=== PATIENT | male | born 1945 | race Caucasian/White ===

== ENCOUNTER 2016-12-17 06:00 | Inpatient (IN) ==
[2016-12-17] MEDS ORDERED: MAGNESIUM SULF RIDER 2 GM in PREMIX 1 EACH IV PRN (10:15)
[2016-12-17] MEDS ORDERED: DOCUSATE SODIUM 100 MG CAPSULE PO PRN (10:15)
[2016-12-17] MEDS ORDERED: ACETAMINOPHEN 325 MG TABLET PO PRN (10:15)
[2016-12-17] MEDS ORDERED: ONDANSETRON 4 MG/2 ML VIAL IV PRN (10:15)
[2016-12-17] MEDS ORDERED: POTASSIUM CHLORIDE 20 MEQ TABLET PO PRN (10:15)
[2016-12-17] MEDS ORDERED: ZALEPLON 5 MG CAPSULE PO PRN (10:15)
[2016-12-17] MEDS ORDERED: MAGNESIUM SULF RIDER 4 GM in PREMIX 1 EACH IV PRN (10:15)
[2016-12-17] MEDS ORDERED: ENOXAPARIN 40 MG/0.4 ML SYRINGE SUBCUT SCH (10:30)
--- NOTE | 2016-12-17 10:33 | EKG Report ---
Stationary ECG Study [facility] Test Date: 12/17/2016 10:33:57 AM Pat Name: NATHANAEL CAMARA Department: Room: 267 Gender: M Regional Liaison: ARMANDO : 1945 Requested by: Lesly Borjas Order Number: [id number] Reading MD: ZEINAB MURILLO Intervals [place] Rate: 89 P: 999 [place]: 0 QRS: -84 QRSD: 111 T: 7 QT: 409 QTc: 456 Interpretive Statements SUPRAVENTRICULAR RHYTHM at 89 bpm INCOMPLETE RIGHT BUNDLE BRANCH BLOCK LEFT ANTERIOR FASCICULAR BLOCK POSSIBLE ANTERIOR MYOCARDIAL INFARCTION, PROBABLY OLD Electronically Signed On 12-20-16 16:40:48 CDT by ZEINAB MURILLO [email or web address]
[2016-12-17 10:38] LABS: Basophils % 0.3 % (0.0-0.8); Eosinophils # 0.2 10*3/uL (0.0-0.87); Eosinophils % 6.8 % (0.00-10.9); Hematocrit 37.8 VOL% (42.0-52.0); Hemoglobin 11.9 GM/DL (14.0-18.0); Immature Granulocytes % 0.3 %; Immature Granulocytes Absolute 0.01 #; Lymphocytes % 30.7 % (21.2-54.2); Mean Corpuscular HGB Conc 31.5 GM/DL (32-36); Mean Corpuscular Hemoglobin 28 PG (27-34); Mean Corpuscular Volume 87.3 FL (87-102); Mean Platelet Volume 9.1 FL (9.6-12.0); Monocytes # 0.4 10*3/uL (0.11-0.8); Monocytes % 12.8 % (1.7-12.7); Neutrophils # 1.7 10*3/uL (1.4-7.4); Neutrophils % 49.1 % (38.7-73.9); Platelet Count 168 T/CUMM (130-400); Red Blood Count 4.33 MC/CUMM (3.8-5.5); Red Cell Distribution Width 17.2 % (9.3-17.3); White Blood Count 3.4 T/CUMM (4-12)
[2016-12-17 10:47] LABS: INR 2.7
[2016-12-17 10:54] LABS: PT Patient Result 30.5 SECS
[2016-12-17] MEDS: SOTALOL 80 MG TABLET PO SCH ×2 (11:02→21:10)
[2016-12-17] MEDS: ASCORBIC ACID 500 MG TABLET PO SCH ×2 (11:02→21:10)
[2016-12-17 11:19] LABS: Albumin 3.6 G/DL (3.4-5.0); Bilirubin,Total 0.7 MG/DL (0.2-1.0); Calcium 9.4 MG/DL (8.5-10.1); Osmolality,Calculated 275.8 MOS/KG (273-304); Potassium 4.1 MMOL/L (3.5-5.1); Total Protein 7.3 G/DL (6.4-8.3)
--- NOTE | 2016-12-17 11:44 | Cardiology History & Physical ---
Assessment and Plan - Time spent with patient Time spent with patient: Greater than 30 minutes (1) Paroxysmal atrial fibrillation Status: Chronic Assessment and plan: See plan of care listed below. Current Visit: Yes (2) CHF (congestive heart failure) Status: Chronic Assessment and plan: See plan of care listed below. Current Visit: No Qualifiers: Congestive heart failure type: systolic Congestive heart failure chronicity : chronic Qualified Code(s): I50.22 - Chronic systolic (congestive) heart failure (3) Atrial flutter Status: Chronic Assessment and plan: See plan of care listed below. Current Visit: No (4) H/O mitral valve replacement Status: Chronic Assessment and plan: See plan of care listed below. Current Visit: No (5) High risk medication use Status: Chronic Assessment and plan: See plan of care listed below. Current Visit: Yes (6) Hypertension Status: Chronic Assessment and plan: See plan of care listed below. Current Visit: No (7) Chronic anticoagulation Status: Chronic Assessment and plan: See plan of care listed below. Current Visit: Yes (8) Hypothyroid Status: Chronic Assessment and plan: See plan of care listed below. 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 Bedoya is a 71 year old male without known history of CAD, routinely followed by Dr. Mcgraw. Cardiac risk factors significant for: Hypertension, dyslipidemia, advanced age, family history of CAD (mother) and former smoker ( quit in 1992). Past medical history includes: Paroxysmal atrial flutter/ fibrillation (status post atrial ablation 1-1/2 months ago [facility]), chronic systolic congestive heart failure, hypothyroidism, chronic peripheral edema, chronic anticoagulation and nonrheumatic mitral valve regurgitation (status post MVR with bioprosthetic valve in [facility] Unfortunately, patient did not remain in sinus rhythm post atrial ablation. During his visit with Dr. Mcgraw last week, they discussed several different options in managing his arrhythmia including the possibility of increasing his labetalol and repeating cardioversion and repeat ablation. The patient opted for a more conservative medical route first. Therefore, patient was arranged for direct admit this morning for sotalol load. Of note, per Dr. Mcgraw is clinic note he has had significant side effects from amiodarone in the past and is unable to take this medication. Patient was a direct admit to [facility] today for sotalol load. He was seen by Dr. Mcgraw in the cardiology clinic December 11, 2016. Patient underwent atrial ablation a month and a half ago. He was feeling much better after ablation until he experienced recurrent atrial fibrillation with rapid ventricular response about 2 weeks ago. This continued for several days. He confirms shortness of breath, palpitations/heart racing and fatigue. Denies anginal symptoms. No syncope, lightheadedness, diaphoresis , nausea, vomiting or orthopnea. He got into see Dr. Mcgraw last week and was then instructed to present to [facility] for direct admit at this morning to increase his sotalol dosage. Patient was seen and examined on the telemetry unit today. He is doing well. He is in normal sinus rhythm. Electrolytes within acceptable range. Normal T4. I have increased patient's atenolol dosage today. We will monitor QTC with daily EKG. I will further discuss with Dr. Ayala and await his additional recommendations. IMPRESSION AND PLAN 1. PAROXYSMAL ATRIAL FIBRILLATION/FLUTTER - Status post atrial ablation a month and a half ago at [facility]. Now with recurrent symptomatic paroxysmal atrial fibrillation/flutter. Admitted for increase in sotalol dose. Patient is currently in normal sinus rhythm. Heart rates in the 80s. Multiple PVCs noted on pvc monitor. I have increased his sotalol to 160 mg twice daily. Monitor QT interval daily with EKG. Daily BMP, optimize electrolytes. 2. HYPERTENSION - Blood pressure well controlled. Will monitor blood pressure and adjust medications accordingly. 3. DYSLIPIDEMIA - Lipid panel in the morning. 4. STATUS POST MVR, BIOPROSTHETIC VALVE - Stable, continue current plan of care. 5. CHRONIC ANTICOAGULATION - INR therapeutic 2.7. Continue Coumadin. Daily INR. 6. CHRONIC PERIPHERAL EDEMA - Will order venous ultrasound. 7. HYPOTHYROIDISM - Check TSH. Continue thyroid replacement. 8. CHRONIC CONGESTIVE HEART FAILURE, SYSTOLIC DYSFUNCTION - Most recent ejection fraction around 40%. BNP 989. Chest x-ray reviewed. Lasix increased to IV. Low-dose DAVID inhibitor initiated. Continue spironolactone and beta- anne-marie. Daily BMP. Home Medications Medication Instructions Recorded Confirmed Type Ascorbic Acid [Vitamin C] 1,000 mg PO BID 07/09/16 12/17/16 History Aspirin 81 mg PO DAILY 07/09/16 12/17/16 History Finasteride 5 mg PO DAILY 07/09/16 12/17/16 History Furosemide Tab [Lasix Tab] 40 mg PO BID 07/09/16 12/17/16 History Potassium Chloride 10 meq PO BID 07/09/16 12/17/16 History Spironolactone [Aldactone] 25 mg PO BID 07/09/16 12/17/16 History Temazepam [Restoril] 15 mg PO BEDTIME PRN 07/09/16 12/17/16 History Warfarin [Coumadin] 5 mg PO SUTUWEFRSA 07/09/16 12/17/16 History Thyroid,Pork [[place] Thyroid] 90 mg PO DAILY 07/10/16 12/17/16 History Sotalol [Betapace] 120 mg PO BID #60 tablet 07/27/16 12/17/16 Rx Magnesium Chloride [Mag Delay] 70 mg PO BID 12/17/16 12/17/16 History Warfarin Sodium [Warfarin Sodium] 2.5 mg PO MOTH 12/17/16 12/17/16 History Allergies Allergy/AdvReac Type Severity Reaction Status Date / Time esomeprazole [From Nexium] AdvReac Abdominal Verified 07/25/16 07:44 Pain - Constitutional Constitutional: Present: as per HPI, fatigue, weakness. Absent: chills, fever(s ), frequent falls, headache(s), lethargy, weight gain, weight loss - Cardiovascular Cardiovascular: Present: as per HPI, dyspnea, edema, palpitations. Absent: chest pain at rest, chest pain with activity, radiating jaw, neck or arm pain, lightheadedness, orthopnea, PND - Respiratory Respiratory: Present: as per HPI, dyspnea. Absent: cough, wheezing, pain on inspiration - Gastrointestinal Gastrointestinal: Present: as per HPI. Absent: coffee ground emesis, hematemesis, hematochezia, melena, nausea, vomiting - Neurological Neurological: Present: as per HPI. Absent: abnormal gait, abnormal speech, behavioral changes, dizziness, syncope Medical,Surgical,& Family Hx - Medical History Cardio: History of: Cardiac Dysrhythmia (Afib), Hypertension, Cardiovascular Problems (Cardioversion) Neurology: No history of: Seizures Endocrine: History of: Thyroid Disorder (HYPOTHYROIDISM) Musculoskeletal: History of: Back/Neck Problems - Surgical History Cardiac Surgeries: Sugical HX of: Cardiac Catheterization, Cardiac Surgery ( "heart surgery 05/2016 [place]") - Family History Family History: Reports;: Family Cancer (FATHER-PROSTATE), Family Diabetes ( FATHER), Family Heart Disease (FATHER) - Social History Smoking Status: Former smoker Frequency of Alcohol Use: None Type of Drug Use: None Cardiology Physical Exam - Constitutional Vitals: Vital Signs Temp Pulse Resp BP Pulse Ox 97.6 F 90 20 133/80 98 12/17/16 10:27 12/17/16 10:27 12/17/16 11:00 12/17/16 10:27 12/17/16 10:27 Intake and Output 12/16/16 12/17/16 12/17/16 22:59 06:59 14:59 Other: Weight 186 lb Patient Weight 12/18/16 06:59 Weight 186 lb Exam: General: Appears well with no apparent distress. Pleasant and cooperative. Appears comfortable. HEENT: PERRL, normocephalic, atraumatic. Mucous membranes moist. No jaundice noted. Conjunctiva moist and clear, sclerae anicteric Neck: No JVD/HJR, no thyromegaly or lymphadenopathy noted. No carotid bruit appreciated Cardiac: Regular rate and rhythm. Systolic murmur Lungs: Clear to auscultation without accessory muscle use to assist the respiratory pattern. Not requiring oxygen. Abdomen: Soft, bowel sounds normoactive. Nontender and nondistended. No abdominal bruit or thrill noted. No masses noted. Extremities: No clubbing, cyanosis noted. 1-2+ lower extremity edema. Upper extremity pulses 2+. Lower extremity pulses 2+. Capillary refill less than 3 seconds. Skin: No unusual lesions or rashes. No skin breakdown appreciated. Neuro: Awake, alert and oriented 3. Moves all extremities well without hemiparesis or paralysis. No essential tremor is appreciated. Result/EKG - Labs CBC & BMP: 12/17/16 10:31 12/17/16 10:31 Lab Results: I have reviewed the past 24 hour labs Labs: Laboratory Results - last 24 hr 12/17/16 12/17/16 12/17/16 10:31 10:31 10:31 WBC 3.4 L RBC 4.33 Hgb 11.9 L Hct 37.8 L MCV 87.3 MCH 28 MCHC 31.5 L RDW 17.2 Plt Count 168 MPV 9.1 L Neut % (Auto) 49.1 Lymph % (Auto) 30.7 [place] % (Auto) 12.8 H Eos % (Auto) 6.8 Baso % (Auto) 0.3 Neut # (Auto) 1.7 Lymph # (Auto) 1.0 L [place] # (Auto) 0.4 Eos # (Auto) 0.2 Baso # (Auto) 0.0 Immature Gran % 0.3 Nucleated RBC % 0.0 Immature Gran # 0.01 Nucleated RBCs # 0.00 Immature Plt Fraction 0.0 INR PT Patient/Control Mix Sodium 137 Potassium 4.1 Chloride 104 Carbon Dioxide 30 Anion Gap 7.1 BUN 22 H Creatinine 0.70 GFR Calculation 117 BUN/Creatinine Ratio 31.00 H Glucose 94 Calculated Osmolality 275.8 Calcium 9.4 Total Bilirubin 0.70 AST 33 ALT 28 Alkaline Phosphatase 191 H B-Natriuretic Peptide Total Protein 7.3 Albumin 3.6 Globulin 3.7 H Albumin/Globulin Ratio 0.9 L Free T4 0.88 12/17/16 12/17/16 10:31 10:31 WBC RBC Hgb Hct MCV MCH MCHC RDW Plt Count MPV Neut % (Auto) Lymph % (Auto) [place] % (Auto) Eos % (Auto) Baso % (Auto) Neut # (Auto) Lymph # (Auto) [place] # (Auto) Eos # (Auto) Baso # (Auto) Immature Gran % Nucleated RBC % Immature Gran # Nucleated RBCs # Immature Plt Fraction INR 2.7 PT Patient/Control Mix 30.5 Sodium Potassium Chloride Carbon Dioxide Anion Gap BUN Creatinine GFR Calculation BUN/Creatinine Ratio Glucose Calculated Osmolality Calcium Total Bilirubin AST ALT Alkaline Phosphatase B-Natriuretic Peptide 989 H Total Protein Albumin Globulin Albumin/Globulin Ratio Free T4
--- NOTE | 2016-12-17 13:37 | XRay Report ---
Portable chest. Indication: Shortness of breath. Comparison: July 16, 2016. The cardiac silhouette is enlarged. A prosthetic valve is visible. Post median sternotomy. The left lung is essentially clear. There is abnormal opacity at the right lung base consistent with a moderate pleural effusion plus underlying atelectasis or infiltrate. Degenerative changes are present within the spinal column and both shoulders. Impression: Cardiomegaly. Right basilar opacity, atelectasis plus or minus infiltrate, plus pleural effusion. PROCEDURE INTERPRETED AT [facility] DEPARTMENT OF RADIOLOGY Final Report Signed by: Dr. Lesly Tovar
[2016-12-17] MEDS ORDERED: TEMAZEPAM 15 MG CAPSULE PO PRN (13:39)
[2016-12-17] MEDS ORDERED: FUROSEMIDE 40 MG TABLET PO SCH (16:00)
--- NOTE | 2016-12-17 16:37 | Ultrasound Report ---
Bilateral lower extremity venous Doppler with newton scale, Spectral Doppler and color-flow analysis performed and interpreted. Indication: Edema Scanning over both common femoral veins, superficial femoral veins, greater saphenous veins and popliteal veins demonstrates normal compressibility, color flow, and augmentation. Impression: No evidence of DVT seen in either lower extremity. The Ultrasound images were captured and stored. PROCEDURE INTERPRETED AT [facility] DEPARTMENT OF RADIOLOGY Final Report Signed by: Dr. Lesly Tovar
[2016-12-17] MEDS: LISINOPRIL 2.5 MG TABLET PO SCH (17:29)
[2016-12-17] MEDS: FUROSEMIDE 40 MG/4 ML VIAL IV SCH (17:29)
[2016-12-17] MEDS ORDERED: WARFARIN 2.5 MG TABLET PO SCH (18:00)
[2016-12-17] MEDS ORDERED: WARFARIN 5 MG TABLET PO SCH (18:00)
[2016-12-17] MEDS: MAGNESIUM CHLORIDE 64 MG TABLET PO SCH (21:10)
[2016-12-17] MEDS: FAMOTIDINE 20 MG TABLET PO SCH (21:10)
[2016-12-17] MEDS: POTASSIUM CHLORIDE 10 MEQ TABLET PO SCH (21:10)
[2016-12-17] MEDS: SPIRONOLACTONE 25 MG TABLET PO SCH (21:18)
[2016-12-18 05:23] LABS: Basophils % 0.3 % (0.0-0.8); Eosinophils # 0.2 10*3/uL (0.0-0.87); Hematocrit 37.3 VOL% (42.0-52.0); Hemoglobin 11.9 GM/DL (14.0-18.0); Immature Granulocytes % 0.3 %; Immature Granulocytes Absolute 0.01 #; Lymphocytes # 1.2 10*3/uL (1.4-4.0); Lymphocytes % 31.7 % (21.2-54.2); Mean Corpuscular HGB Conc 31.9 GM/DL (32-36); Mean Corpuscular Hemoglobin 28 PG (27-34); Mean Corpuscular Volume 86.1 FL (87-102); Mean Platelet Volume 9.7 FL (9.6-12.0); Monocytes # 0.5 10*3/uL (0.11-0.8); Monocytes % 11.9 % (1.7-12.7); Neutrophils # 1.9 10*3/uL (1.4-7.4); Neutrophils % 50.8 % (38.7-73.9); Platelet Count 171 T/CUMM (130-400); Red Blood Count 4.33 MC/CUMM (3.8-5.5); Red Cell Distribution Width 17.1 % (9.3-17.3); White Blood Count 3.8 T/CUMM (4-12)
[2016-12-18 05:37] LABS: INR 2.5
[2016-12-18 05:38] LABS: PT Patient Result 28.1 SECS
[2016-12-18 06:08] LABS: Calcium 9.4 MG/DL (8.5-10.1); Osmolality,Calculated 275.7 MOS/KG (273-304); Potassium 3.8 MMOL/L (3.5-5.1); Risk Ratio 3.8; Thyroid Stimulating Hormone 4.54 uIU/ml (0.358-3.74); VLDL CHOLESTEROL 16.8 MG/DL
--- NOTE | 2016-12-18 07:26 | EKG Report ---
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
[2016-12-18] MEDS: THYROID 60 MG TABLET PO SCH (08:58)
[2016-12-18] MEDS: MAGNESIUM CHLORIDE 64 MG TABLET PO SCH ×2 (08:59→20:56)
[2016-12-18] MEDS: LISINOPRIL 2.5 MG TABLET PO SCH (09:00)
[2016-12-18] MEDS: FINASTERIDE 5 MG TABLET PO SCH (09:00)
[2016-12-18] MEDS: SOTALOL 80 MG TABLET PO SCH ×2 (09:00→20:57)
[2016-12-18] MEDS: POTASSIUM CHLORIDE 10 MEQ TABLET PO SCH ×2 (09:01→20:57)
[2016-12-18] MEDS: FUROSEMIDE 40 MG/4 ML VIAL IV SCH (09:01)
[2016-12-18] MEDS: ASPIRIN CHEW 81 MG TABLET PO SCH (09:01)
[2016-12-18] MEDS: SPIRONOLACTONE 25 MG TABLET PO SCH ×2 (09:01→20:59)
[2016-12-18] MEDS: ASCORBIC ACID 500 MG TABLET PO SCH ×2 (09:01→20:56)
--- NOTE | 2016-12-18 11:42 | Cardiology Progress Note ---
Assessment and Plan (1) Paroxysmal atrial fibrillation Status: Chronic Assessment and plan: See plan of care listed below. Current Visit: Yes (2) CHF (congestive heart failure) Status: Chronic Assessment and plan: See plan of care listed below. Current Visit: No Qualifiers: Congestive heart failure type: systolic Congestive heart failure chronicity : chronic Qualified Code(s): I50.22 - Chronic systolic (congestive) heart failure (3) Atrial flutter Status: Chronic Assessment and plan: See plan of care listed below. Current Visit: No (4) H/O mitral valve replacement Status: Chronic Assessment and plan: See plan of care listed below. Current Visit: No (5) High risk medication use Status: Chronic Assessment and plan: See plan of care listed below. Current Visit: Yes (6) Hypertension Status: Chronic Assessment and plan: See plan of care listed below. Current Visit: No (7) Chronic anticoagulation Status: Chronic Assessment and plan: See plan of care listed below. Current Visit: Yes (8) Hypothyroid Status: Chronic Assessment and plan: See plan of care listed below. 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 Bedoya is a 71 year old male without known history of CAD, routinely followed by Dr. Mcgraw. Cardiac risk factors significant for: Hypertension, dyslipidemia, advanced age, family history of CAD (mother) and former smoker ( quit in 1992). Past medical history includes: Paroxysmal atrial flutter/ fibrillation (status post atrial ablation 1-1/2 months ago [facility]), chronic systolic congestive heart failure, hypothyroidism, chronic peripheral edema, chronic anticoagulation and nonrheumatic mitral valve regurgitation (status post MVR with bioprosthetic valve in [facility]). Unfortunately, patient did not remain in sinus rhythm post atrial ablation. She had recurrent A. fib RVR approximately 2 weeks ago. After seeing Dr. Mcgraw last week in the cardiology clinic they decided to increase his sotalol dose from 120 to 160 mg twice daily. He was directly admitted to the telemetry unit yesterday for close observation while his sotalol is increased. 2016 Patient was seen and examined on the telemetry unit. He is doing well without complaints. Denies heart racing/palpitations. Denies chest pain, heaviness or tightness. Family at bedside. Questions answered. He has tolerated increase in sotalol well. He has received 2 doses thus far. EKG reviewed this morning QT interval 445. We will continue to monitor QT interval with daily EKGs. Lipid panel reviewed. LDL stable at 89. Patient does not have a history of CAD nor is he a diabetic. No need for lipid-lowering agent at this time. Patient has maintained normal sinus rhythm this hospitalization. Hemodynamically stable. He diuresed well yesterday with Lasix. Clinically, he is without shortness of breath and orthopnea. I have decreased his Lasix today to p.o. BNP in the morning. INR this morning is therapeutic at 2.5. Continue current Coumadin dosage. Daily INR. Continue sotalol, low-dose DAVID inhibitor, Aldactone and beta-blockade. Will monitor daily BMP. I will further discuss with Dr. Ayala and await his additional recommendations. IMPRESSION AND PLAN 1. PAROXYSMAL ATRIAL FIBRILLATION/FLUTTER - Status post atrial ablation a month and a half ago at [facility]. Now with recurrent symptomatic paroxysmal atrial fibrillation/flutter. Admitted for increase in sotalol dose. Patient has maintained normal sinus rhythm this hospitalization. Tolerating sotalol 160 mg twice daily well. EKG this morning revealed QT interval 445. Daily EKG. 2. HYPERTENSION - Blood pressure well controlled. Will monitor blood pressure and adjust medications accordingly. 3. STATUS POST MVR, BIOPROSTHETIC VALVE - Stable, continue current plan of care. 4. CHRONIC ANTICOAGULATION - INR therapeutic 2.5. Continue Coumadin. Daily INR. 5. CHRONIC PERIPHERAL EDEMA - Venous ultrasound negative for DVT. Continue diuretics. 6. HYPOTHYROIDISM -thyroid studies normal. Continue thyroid replacement. 7. CHRONIC CONGESTIVE HEART FAILURE, SYSTOLIC DYSFUNCTION - Most recent ejection fraction around 40%. Chest x-ray yesterday revealed right pleural effusion. He received IV Lasix yesterday and diuresed well. Clinically, he is without shortness of breath and orthopnea. I have decreased patient's Lasix back to p.o. dosing. Will order BNP in the morning. Continue DAVID inhibitor, Aldactone and beta blockade. Daily weights and strict I's and O's. Exam (Progress Note) - Constitutional Vitals: Period Temp Pulse Resp BP Sys/Pinto Pulse Ox Last 24 Hr 97.1 F-98.2 F 88-93 16-20 128-144/79-90 95-98 Exam: General: Appears well with no apparent distress. Pleasant and cooperative. Appears comfortable. HEENT: PERRL, normocephalic, atraumatic. Mucous membranes moist. No jaundice noted. Conjunctiva moist and clear, sclerae anicteric Neck: No JVD/HJR, no thyromegaly or lymphadenopathy noted. No carotid bruit appreciated Cardiac: Regular rate and rhythm. Systolic murmur Lungs: Clear to auscultation without accessory muscle use to assist the respiratory pattern. Not requiring oxygen. Abdomen: Soft, bowel sounds normoactive. Nontender and nondistended. No abdominal bruit or thrill noted. No masses noted. Extremities: No clubbing, cyanosis noted. 1-2+ lower extremity edema. Upper extremity pulses 2+. Lower extremity pulses 2+. Capillary refill less than 3 seconds. Skin: No unusual lesions or rashes. No skin breakdown appreciated. Neuro: Awake, alert and oriented 3. Moves all extremities well without hemiparesis or paralysis. No essential tremor is appreciated. Result/EKG - Labs CBC & BMP: 12/18/16 04:45 12/18/16 04:45 Lab Results: I have reviewed the past 24 hour labs Labs: Laboratory Results - last 24 hr 12/17/16 12/18/16 12/18/16 10:31 04:45 04:45 WBC 3.8 L RBC 4.33 Hgb 11.9 L Hct 37.3 L MCV 86.1 L MCH 28 MCHC 31.9 L RDW 17.1 Plt Count 171 MPV 9.7 Neut % (Auto) 50.8 Lymph % (Auto) 31.7 [place] % (Auto) 11.9 Eos % (Auto) 5.0 Baso % (Auto) 0.3 Neut # (Auto) 1.9 Lymph # (Auto) 1.2 L [place] # (Auto) 0.5 Eos # (Auto) 0.2 Baso # (Auto) 0.0 Immature Gran % 0.3 Nucleated RBC % 0.0 Immature Gran # 0.01 Nucleated RBCs # 0.00 Immature Plt Fraction 0.0 INR PT Patient/Control Mix Sodium 138 Potassium 3.8 Chloride 103 Carbon Dioxide 29 Anion Gap 9.8 BUN 19 H Creatinine 0.70 GFR Calculation 115 BUN/Creatinine Ratio 27.00 H Glucose 84 Calculated Osmolality 275.7 Calcium 9.4 Triglycerides 84 Cholesterol 133 LDL Cholesterol 89.0 VLDL Cholesterol 16.8 HDL Cholesterol 35 L Heart Disease Risk Ratio 3.80 Free T4 0.88 TSH 3rd Generation 4.540 H 12/18/16 04:45 WBC RBC Hgb Hct MCV MCH MCHC RDW Plt Count MPV Neut % (Auto) Lymph % (Auto) [place] % (Auto) Eos % (Auto) Baso % (Auto) Neut # (Auto) Lymph # (Auto) [place] # (Auto) Eos # (Auto) Baso # (Auto) Immature Gran % Nucleated RBC % Immature Gran # Nucleated RBCs # Immature Plt Fraction INR 2.5 PT Patient/Control Mix 28.1 Sodium Potassium Chloride Carbon Dioxide Anion Gap BUN Creatinine GFR Calculation BUN/Creatinine Ratio Glucose Calculated Osmolality Calcium Triglycerides Cholesterol LDL Cholesterol VLDL Cholesterol HDL Cholesterol Heart Disease Risk Ratio Free T4 TSH 3rd Generation
[2016-12-18] MEDS: WARFARIN 5 MG TABLET PO SCH (17:18)
[2016-12-18] MEDS: FUROSEMIDE 40 MG TABLET PO SCH (17:19)
[2016-12-18] MEDS: FAMOTIDINE 20 MG TABLET PO SCH (20:57)
[2016-12-19 05:00] LABS: Basophils % 0.2 % (0.0-0.8); Eosinophils # 0.2 10*3/uL (0.0-0.87); Hematocrit 38.3 VOL% (42.0-52.0); Hemoglobin 12.5 GM/DL (14.0-18.0); Immature Granulocytes % 0.2 %; Immature Granulocytes Absolute 0.01 #; Lymphocytes # 1.4 10*3/uL (1.4-4.0); Lymphocytes % 32.7 % (21.2-54.2); Mean Corpuscular HGB Conc 32.6 GM/DL (32-36); Mean Corpuscular Hemoglobin 28 PG (27-34); Mean Corpuscular Volume 85.1 FL (87-102); Mean Platelet Volume 9.6 FL (9.6-12.0); Monocytes # 0.5 10*3/uL (0.11-0.8); Monocytes % 11.4 % (1.7-12.7); Neutrophils # 2.2 10*3/uL (1.4-7.4); Neutrophils % 51.5 % (38.7-73.9); Platelet Count 185 T/CUMM (130-400); White Blood Count 4.3 T/CUMM (4-12)
[2016-12-19 05:30] LABS: Calcium 9.7 MG/DL (8.5-10.1); Magnesium 2.1 MG/DL (1.8-2.4); Osmolality,Calculated 277.8 MOS/KG (273-304)
[2016-12-19 05:38] LABS: INR 2.6
[2016-12-19 05:39] LABS: PT Patient Result 27.1 SECS
--- NOTE | 2016-12-19 07:30 | EKG Report ---
Please refer to the EKG image. Final interpretation is pending.
--- NOTE | 2016-12-19 09:46 | Event Note ---
I discussed with Dr. Mcgraw and Dr. Ga, who agreed that he has atrial flutter underlying. He is doing fairly well clinically, but I suspect he will do better if we cardioverted him now to reduce his chance of RVR in the near future. His flutter is a bit atypical but can be seen in the V1 lead. He is anticoagulated for over 3 weeks, and will schedule cardioversion later today, with discharge probably this p.m.
[2016-12-19] MEDS ORDERED: PROPOFOL 200 MG/20 ML VIAL IV ONE (11:50)
[2016-12-19] MEDS ORDERED: ETOMIDATE 20 MG/10 ML VIAL IV ONE (11:50)
--- NOTE | 2016-12-19 12:06 | Cardiology Operative Report ---
Date of Procedure:: 12/19/16 Post-op diagnosis: same Procedure: Procedure: DC cardioversion Indication: Persistent atrial flutter Anesthesia: Propofol administered to the anesthesia service. Description: After the patient was sedated (reach general anesthesia stay as he was unresponsive for some time), 1 shock was administered at 250 J followed by 3 -4 second pause and then sinus bradycardia with subtle at a rate of about 50 bpm with QTC of 490. I explained the results to his family. He will likely need a lower dose of Betapace. Anesthesia: other (Intended conscious sedation with the patient reached the level of general anesthesia temporarily on propofol) Surgeon / Physician: Orlin Ayala Chief I Dispatcher: other Estimated blood loss: minimal Specimens: none sent Condition: stable Disposition: floor
--- NOTE | 2016-12-19 12:18 | Anesthesia Post-Op ---
Anesthesia Post OP - Post Ansesthetic Evaluation Patient seen in post op: Yes Resp: within normal limits CV: within normal limits Mental: within normal limits Temp: within normal limits [id number]: within normal limits Nausea and Vomiting: within normal limits Pain: within normal limits
--- NOTE | 2016-12-19 13:08 | EKG Report ---
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
[2016-12-19] MEDS: LISINOPRIL 2.5 MG TABLET PO SCH (14:16)
[2016-12-19] MEDS: MAGNESIUM CHLORIDE 64 MG TABLET PO SCH ×2 (14:41→20:08)
[2016-12-19] MEDS: THYROID 60 MG TABLET PO SCH (14:42)
[2016-12-19] MEDS: ASCORBIC ACID 500 MG TABLET PO SCH ×2 (14:44→20:07)
[2016-12-19] MEDS: FUROSEMIDE 40 MG TABLET PO SCH ×2 (14:45→17:31)
[2016-12-19] MEDS: FINASTERIDE 5 MG TABLET PO SCH (14:45)
[2016-12-19] MEDS: POTASSIUM CHLORIDE 10 MEQ TABLET PO SCH ×2 (14:45→20:08)
[2016-12-19] MEDS: ASPIRIN CHEW 81 MG TABLET PO SCH (14:45)
[2016-12-19] MEDS: SPIRONOLACTONE 25 MG TABLET PO SCH ×2 (14:45→20:08)
[2016-12-19] MEDS: WARFARIN 5 MG TABLET PO SCH (17:31)
[2016-12-19] MEDS: FAMOTIDINE 20 MG TABLET PO SCH (20:07)
[2016-12-20] MEDS ORDERED: DILTIAZEM INJ 100 MG in SODIUM CHLORIDE 0.9% 100 ML IV SCH (03:00)
[2016-12-20] MEDS ORDERED: SODIUM CHLORIDE 0.9% 0 ML IV ONE (03:02)
[2016-12-20] MEDS ORDERED: DILTIAZEM 100 MG VIAL.ADD IV ONE (03:02)
[2016-12-20] MEDS ORDERED: SODIUM CHLORIDE 0.9% 100 ML IV ONE (03:03)
[2016-12-20 05:56] LABS: Basophils % 0.2 % (0.0-0.8); Eosinophils # 0.2 10*3/uL (0.0-0.87); Eosinophils % 4.5 % (0.00-10.9); Hematocrit 41.7 VOL% (42.0-52.0); Hemoglobin 13.4 GM/DL (14.0-18.0); Immature Granulocytes % 0.2 %; Immature Granulocytes Absolute 0.01 #; Lymphocytes # 1.3 10*3/uL (1.4-4.0); Lymphocytes % 27.9 % (21.2-54.2); Mean Corpuscular HGB Conc 32.1 GM/DL (32-36); Mean Corpuscular Hemoglobin 28 PG (27-34); Mean Corpuscular Volume 86.7 FL (87-102); Mean Platelet Volume 9.9 FL (9.6-12.0); Monocytes # 0.5 10*3/uL (0.11-0.8); Monocytes % 10.4 % (1.7-12.7); Neutrophils # 2.6 10*3/uL (1.4-7.4); Neutrophils % 56.8 % (38.7-73.9); Platelet Count 220 T/CUMM (130-400); Red Blood Count 4.81 MC/CUMM (3.8-5.5); Red Cell Distribution Width 16.9 % (9.3-17.3); White Blood Count 4.6 T/CUMM (4-12)
[2016-12-20 06:03] LABS: INR 2.9
[2016-12-20 06:04] LABS: PT Patient Result 30.6 SECS
[2016-12-20 06:36] LABS: Calcium 9.8 MG/DL (8.5-10.1); Magnesium 2.1 MG/DL (1.8-2.4); Osmolality,Calculated 280.5 MOS/KG (273-304); Potassium 3.9 MMOL/L (3.5-5.1)
--- NOTE | 2016-12-20 07:05 | EKG Report ---
Stationary ECG Study 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
--- NOTE | 2016-12-20 07:58 | EKG Report ---
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
--- NOTE | 2016-12-20 07:59 | EKG Report ---
Stationary ECG Study [facility] Test Date: 12/19/2016 12:36:08 PM Pat Name: NATHANAEL CAMARA Department: Room: 110 Gender: M Sec Reporting Consultant: : 1945 Requested by: Orlin Mckeon Order Number: [id number] Reading MD: ZEINAB MURILLO Intervals [place] Rate: 64 P: -11 [place]: 222 QRS: -68 QRSD: 104 T: 71 QT: 511 QTc: 521 Interpretive Statements SINUS RHYTHM WITH FIRST DEGREE AV BLOCK followed by atrial paced beat, PVC, and eventual pause of at least over 3 seconds CONSISTENT WITH PULMONARY DISEASE LEFT ANTERIOR FASCICULAR BLOCK LONG QT INTERVAL Electronically Signed On 12-22-16 12:26:41 CDT by ZEINAB MURILLO [email or web address]
--- NOTE | 2016-12-20 08:21 | Event Note ---
Mr. Bedoya had prolonged pauses of over 3 seconds after his cardioversion yesterday and heart rates vacillating between the 30s in the 50s (with QTC in the 490s), for some time. His heart rate is picked up and is not needed transcutaneous pacing, but he is converted back to atrial flutter it appears with RVR. Diltiazem is keeping the rate in the 90s range but he becomes tachycardic if he gets up, and he gets hypotensive if his diltiazem is turned up. I will given 50 of Toprol and I have consulted Dr. Ga who will see him today to decide the best course, his Betapace does not appear to be good medication for him. His is unhappy because she lives in [place] and did not plan on this long of a hospitalization does not have enough close. I explained to her that unfortunately plan they do not work and will have to go to plan B. They seem pleased Dr. Abebe is going to see them and make further recommendations. They report that they had ablation by Dr. Gutierrez September of this year.
[2016-12-20] MEDS ORDERED: PHYTONADIONE 5 MG TABLET PO ONE (08:27)
[2016-12-20] MEDS ORDERED: METOPROLOL SUCCINATE XL 50 MG TABLET PO SCH (09:00)
[2016-12-20] MEDS ORDERED: DIAZEPAM 5 MG TABLET PO ONE (09:00)
[2016-12-20] MEDS ORDERED: ceFAZolin 1,000 MG VIAL IRRIG ONE (09:00)
[2016-12-20] MEDS ORDERED: diphenhydrAMINE CAP 25 MG CAPSULE PO ONE (09:00)
[2016-12-20] MEDS: METOPROLOL SUCCINATE XL 50 MG TABLET PO SCH ×2 (09:10→10:17)
[2016-12-20] MEDS: FUROSEMIDE 40 MG TABLET PO SCH ×2 (09:12→16:15)
[2016-12-20] MEDS: THYROID 60 MG TABLET PO SCH (09:21)
[2016-12-20] MEDS: POTASSIUM CHLORIDE 10 MEQ TABLET PO SCH (09:22)
[2016-12-20] MEDS: ASCORBIC ACID 500 MG TABLET PO SCH ×2 (09:22→21:06)
[2016-12-20] MEDS: FINASTERIDE 5 MG TABLET PO SCH (09:23)
[2016-12-20] MEDS: MAGNESIUM CHLORIDE 64 MG TABLET PO SCH ×2 (09:23→21:05)
[2016-12-20] MEDS: ASPIRIN CHEW 81 MG TABLET PO SCH (09:27)
[2016-12-20] MEDS: SPIRONOLACTONE 25 MG TABLET PO SCH ×2 (09:27→21:06)
[2016-12-20] MEDS: LISINOPRIL 2.5 MG TABLET PO SCH (09:27)
--- NOTE | 2016-12-20 09:47 | Electrophysiology Consultation ---
History of Present Illness - Data of Consult Patient: new to practice Consult date: 12/20/16 Requesting Physician: Orlin Ayala - Consult Narrative Reason for consult: tachybrady History of present illness: Mr. Bedoya is a 71 year old male, with history of highly symptomatic paroxysmal atrial fibrillation, for which he underwent ablation of the atrial fibrillation several weeks ago at [facility]. 3 weeks later, the arrhythmia recurred, he was in symptomatic atrial flutter. He was admitted for this reason. Heart rate was not excessive initially, however he was quite symptomatic and cardioversion performed. He developed atrial flutter, and had episodes of sinus arrest, lasting up to several seconds. This was only mildly symptomatic. No prior syncope chest pain INR 2.9 EKG sinus rhythm, 65 bpm, normal QRS. He was intolerant to amiodarone in the past, recently, was also told, which was ineffective for rhythm control. Cardizem it was more efficient for rate control , however, he noted significant bradycardia events with it. Cell counts are normal. He is feeling fine currently. History of remote mitral valve replacement, no recent echo. History of hypothyroid disease, thyroids without significant issues. Hypertension, well controlled. CC: Jose Mcgraw MD - Home Medications and Allergies Home Medications: Home Medications Medication Instructions Recorded Confirmed Type Ascorbic Acid [Vitamin C] 1,000 mg PO BID 07/09/16 12/17/16 History Aspirin 81 mg PO DAILY 07/09/16 12/17/16 History Finasteride 5 mg PO DAILY 07/09/16 12/17/16 History Furosemide Tab [Lasix Tab] 40 mg PO BID 07/09/16 12/17/16 History Potassium Chloride 10 meq PO BID 07/09/16 12/17/16 History Spironolactone [Aldactone] 25 mg PO BID 07/09/16 12/17/16 History Temazepam [Restoril] 15 mg PO BEDTIME PRN 07/09/16 12/17/16 History Warfarin [Coumadin] 5 mg PO SUTUWEFRSA 07/09/16 12/17/16 History Thyroid,Pork [[place] Thyroid] 90 mg PO DAILY 07/10/16 12/17/16 History Sotalol [Betapace] 120 mg PO BID #60 tablet 07/27/16 12/17/16 Rx Magnesium Chloride [Mag Delay] 70 mg PO BID 12/17/16 12/17/16 History Warfarin Sodium [Warfarin Sodium] 2.5 mg PO MOTH 12/17/16 12/17/16 History Allergies/Adverse Reactions: Allergies Allergy/AdvReac Type Severity Reaction Status Date / Time amiodarone [From Cordarone] AdvReac Severe UNCONSCIOUS Verified 12/17/16 21:17 esomeprazole [From Nexium] AdvReac Abdominal Verified 07/25/16 07:44 Pain Medical,Surgical,& Family Hx - Medical History Cardio: History of: Cardiac Dysrhythmia (Afib), CAD, Hypertension, Cardiovascular Problems (Cardioversion) Neurology: No history of: Seizures Endocrine: History of: Thyroid Disorder (HYPOTHYROIDISM) Musculoskeletal: History of: Back/Neck Problems - Surgical History Cardiac Surgeries: Sugical HX of: Cardiac Catheterization, Cardiac Surgery ( "heart surgery 05/2016 Mary D") - Family History Family History: Reports;: Family Cancer (FATHER-PROSTATE), Family Diabetes ( FATHER), Family Heart Disease (FATHER) - Social History Smoking Status: Former smoker Frequency of Alcohol Use: None Type of Drug Use: None 12 point system: reviewed and no additional remarkable complaints except as stated Exam - Constitutional Vitals: Period Temp Pulse Resp BP Sys/Pinto Pulse Ox Last 24 Hr 97.5 F-98.2 F 90-141 14-20 99-141/62-95 94-100 General appearance: normal weight, no acute distress - Head Head exam: Present: normal inspection. Absent: abrasion, hematoma - Eye Eye exam: Absent: conjunctival injection, periorbital swelling Pupils: Absent: dilated - ENT ENT exam: Present: normal external ear exam - Neck Neck exam: Present: normal inspection. Absent: thyromegaly - Respiratory Respiratory exam: Present: clear to auscultation bilaterally. Absent: chest wall tenderness - Cardiovascular Cardiovascular exam: Present: bradycardia, regular rate and rhythm, systolic murmur. Absent: JVD - GI/Abdominal GI/Abdominal exam: Present: normal bowel sounds. Absent: distended - Extremities Exam Extremities exam: Present: normal inspection, normal capillary refill. Absent: edema - Back Exam Back exam: Present: normal inspection - Neurological Exam Neurological exam: Present: alert, oriented X3 - Psychiatric Psychiatric exam: Present: normal affect, normal mood - Skin Skin exam: Present: normal color, warm. Absent: cyanosis Results - Labs CBC & BMP: 12/20/16 04:59 12/20/16 04:59 Lab Results: I have reviewed the past 24 hour labs Assessment and Plan (1) Tachy-sherif syndrome Status: Acute Assessment and plan: 71-year-old male, followed by Dr. Mcgraw. Status post ablation for atrial fibrillation, now with symptomatic recurrence of atypical atrial flutter, status post cardioversion, again, with prone prolapse. Long sinus arrest. He was intolerant to amiodarone in the past, sotalol was ineffective -Discussed risks and benefits of management options. For the significant bradycardia issues, we will proceed with a dual-chamber pacemaker implantation, under conscious sedation today. We will then attempt a pharmacological rhythm control. Options are limited. -1 mg vitamin K p.o. hold Coumadin tonight -N.p.o. Current Visit: Yes
[2016-12-20 09:55] LABS: INR 3.2
[2016-12-20 10:03] LABS: PT Patient Result 33.5 SECS; Partial Thromboplastin Time 44.1 SECS (0-40)
--- NOTE | 2016-12-20 11:06 | History and Physical Update ---
Sedation H&P Update - History and Physical H&P was reviewed, the patient examined and there: are no changes in the patients condition since last H&P was completed. - Dictation Physical: refer to H&P completed by admitting physician - Physical Exam Mental Status: alert and oriented Heart: other (irregular) Lung: clear to auscultation Abdomen: within normal limits Vitals: within normal limits - Sedation Plan for Sedation: moderate Patient Consent: Procedure disscussed with patient and patinet has consented., Risks and benefits were discussed with patient,including infection,, bleeding, injury to surrounding structures, seizure, temporary nerve, Patient understands and accepts potential risks/benefits and agrees to ASA Class: IV Airway Assessment: Class II: Soft palate, uvula, fauces visible
[2016-12-20] MEDS ORDERED: HEPARIN/NACL 0.9% 2 UNITS/ML 500 ML IV ONE (11:23)
[2016-12-20] MEDS ORDERED: LIDOCAINE 1% 20 ML VIAL ONE (11:23)
--- NOTE | 2016-12-20 11:23 | Cardiology Progress Note ---
Assessment and Plan (1) Paroxysmal atrial fibrillation Status: Chronic Assessment and plan: See plan of care listed below. Current Visit: Yes (2) CHF (congestive heart failure) Status: Chronic Assessment and plan: See plan of care listed below. Current Visit: No Qualifiers: Congestive heart failure type: systolic Congestive heart failure chronicity : chronic Qualified Code(s): I50.22 - Chronic systolic (congestive) heart failure (3) Atrial flutter Status: Chronic Assessment and plan: See plan of care listed below. Current Visit: No (4) H/O mitral valve replacement Status: Chronic Assessment and plan: See plan of care listed below. Current Visit: No (5) High risk medication use Status: Chronic Assessment and plan: See plan of care listed below. Current Visit: Yes (6) Hypertension Status: Chronic Assessment and plan: See plan of care listed below. Current Visit: No (7) Chronic anticoagulation Status: Chronic Assessment and plan: See plan of care listed below. Current Visit: Yes (8) Hypothyroid Status: Chronic Assessment and plan: See plan of care listed below. Current Visit: Yes (9) Sick sinus syndrome Status: Acute Assessment and plan: SEE PLAN OF CARE LISTED BELOW. Current Visit: Yes Cardiology - PN: Subj Interval history: FACILITIES AND GROUNDS DIRECTOR: Dr. Mcgraw SUMMARY Mr. Bedoya is a 71 year old male without known history of CAD, routinely followed by Dr. Mcgraw. Cardiac risk factors significant for: Hypertension, dyslipidemia, advanced age, family history of CAD (mother) and former smoker ( quit in 1992). Past medical history includes: Paroxysmal atrial flutter/ fibrillation (status post atrial ablation 1-1/2 months ago UA), chronic systolic congestive heart failure, hypothyroidism, chronic peripheral edema, chronic anticoagulation and nonrheumatic mitral valve regurgitation (status post MVR with bioprosthetic valve in [facility]). Unfortunately, patient did not remain in sinus rhythm post atrial ablation. She had recurrent A. fib RVR approximately 2 weeks ago. After seeing Dr. Mcgraw last week in the cardiology clinic they decided to increase his sotalol dose from 120 to 160 mg twice daily. He was directly admitted to the telemetry unit for close observation while his sotalol is increased. Patient has tolerated sotalol increase well. He has remained in what we suspect is in atrial flutter with a controlled ventricular response. Patient was unsuccessful in chemically cardioverting with sotalol. For that reason, he was cardioverted 12/19/[address] Ayala. After cardioversion, he had prolonged pauses of over 3 seconds. Heart rates ranging between 30s-50s. QTc 490s. His heart rate did forklift picker and did not require transcutaneous pacing. However, he did compartment back to atrial flutter with rapid ventricular response. Diltiazem drip was initiated which helped with rate control. He was transferred to the ICU for close observation overnight. Dr. Ga was consulted for possible pacemaker placement for patients with sick sinus syndrome. 2016 Patient was seen and examined earlier today in the CCU. He is currently being held n.p.o. for pacemaker placement later today per Dr. Abebe. He is currently in atrial fibrillation with a controlled ventricular response. No longer requiring IV diltiazem. Hemodynamically stable. Currently without complaints of palpitations, heart racing. However, he does report he was symptomatic last night. Denies chest pain, heaviness or tightness. Denies shortness of breath. He was unable to tolerate sotalol. QTc yesterday prolonged. This is been discontinued. Metoprolol succinate added yesterday. We will plan to increase AV graciela blocking agents as able once his pacemaker is in place. This will hopefully provide patient adequate rate control. Further plan and addendum to follow per Dr. Ayala. IMPRESSION AND PLAN 1. PAROXYSMAL ATRIAL FIBRILLATION/FLUTTER - Currently in atrial fibrillation with a controlled ventricular response. Had episodes of bradycardia yesterday after her cardioversion. Has developed sick sinus syndrome. He will undergo pacemaker placement today per Dr. Abebe. Following pacemaker placement, we will then be able to increase his p.o. medications to achieve rate control. Continue beta-blockade. Daily BMP, continue to optimize electrolytes. I have increased his potassium dosage today. Continue anticoagulation with warfarin for stroke prevention. Daily INR. 2. HYPERTENSION - Blood pressure well controlled. Will monitor blood pressure and adjust medications accordingly. 3. STATUS POST MVR, BIOPROSTHETIC VALVE - Stable, continue current plan of care. 4. CHRONIC ANTICOAGULATION - INR 3.2. Continue Coumadin. Daily INR. 5. CHRONIC PERIPHERAL EDEMA - Venous ultrasound negative for DVT. Continue diuretics. 6. HYPOTHYROIDISM - Thyroid studies normal. Continue thyroid replacement. 7. CHRONIC CONGESTIVE HEART FAILURE, SYSTOLIC DYSFUNCTION - Most recent ejection fraction around 40%. Without overt heart failure. Continue DAVID inhibitor, Aldactone and beta blockade. Daily weights and strict I's and O's. 8. SICK SINUS SYNDROME - Plan for dual-chamber pacemaker placement per Dr. Abebe today. N.p.o. Exam (Progress Note) - Constitutional Vitals: Period Temp Pulse Resp BP Sys/Pinto Pulse Ox Last 24 Hr 97.5 F-98.2 F 87-141 14-20 99-141/62-95 94-100 Exam: General: Appears well with no apparent distress. Pleasant and cooperative. Appears comfortable. HEENT: PERRL, normocephalic, atraumatic. Mucous membranes moist. No jaundice noted. Conjunctiva moist and clear, sclerae anicteric Neck: No JVD/HJR, no thyromegaly or lymphadenopathy noted. No carotid bruit appreciated Cardiac: Irregular rate and rhythm, rate controlled. Systolic murmur Lungs: Clear to auscultation without accessory muscle use to assist the respiratory pattern. Not requiring oxygen. Abdomen: Soft, bowel sounds normoactive. Nontender and nondistended. No abdominal bruit or thrill noted. No masses noted. Extremities: No clubbing, cyanosis noted. 1-2+ lower extremity edema. Upper extremity pulses 2+. Lower extremity pulses 2+. Capillary refill less than 3 seconds. Skin: No unusual lesions or rashes. No skin breakdown appreciated. Neuro: Awake, alert and oriented 3. Moves all extremities well without hemiparesis or paralysis. No essential tremor is appreciated. Result/EKG - Labs CBC & BMP: 12/20/16 04:59 12/20/16 04:59 Lab Results: I have reviewed the past 24 hour labs Labs: Laboratory Results - last 24 hr 12/20/16 12/20/16 12/20/16 04:59 04:59 04:59 WBC 4.6 RBC 4.81 Hgb 13.4 L Hct 41.7 L MCV 86.7 L MCH 28 MCHC 32.1 RDW 16.9 Plt Count 220 MPV 9.9 Neut % (Auto) 56.8 Lymph % (Auto) 27.9 [place] % (Auto) 10.4 Eos % (Auto) 4.5 Baso % (Auto) 0.2 Neut # (Auto) 2.6 Lymph # (Auto) 1.3 L [place] # (Auto) 0.5 Eos # (Auto) 0.2 Baso # (Auto) 0.0 Immature Gran % 0.2 Nucleated RBC % 0.0 Immature Gran # 0.01 Nucleated RBCs # 0.00 Immature Plt Fraction 0.0 INR 2.9 PT Patient/Control Mix 30.6 Circ Anticoag PTT Sodium Potassium Chloride Carbon Dioxide Anion Gap BUN Creatinine GFR Calculation BUN/Creatinine Ratio Glucose Calculated Osmolality Calcium Magnesium TSH 3rd Generation 3.840 H 12/20/16 12/20/16 04:59 09:32 WBC RBC Hgb Hct MCV MCH MCHC RDW Plt Count MPV Neut % (Auto) Lymph % (Auto) [place] % (Auto) Eos % (Auto) Baso % (Auto) Neut # (Auto) Lymph # (Auto) [place] # (Auto) Eos # (Auto) Baso # (Auto) Immature Gran % Nucleated RBC % Immature Gran # Nucleated RBCs # Immature Plt Fraction INR 3.2 PT Patient/Control Mix 33.5 Circ Anticoag PTT 44.1 H Sodium 139 Potassium 3.9 Chloride 101 Carbon Dioxide 30 Anion Gap 11.9 BUN 25 H Creatinine 0.90 GFR Calculation 101 BUN/Creatinine Ratio 27.00 H Glucose 96 Calculated Osmolality 280.5 Calcium 9.8 Magnesium 2.1 TSH 3rd Generation
[2016-12-20] MEDS ORDERED: TISSUE ADHESIVE 1 EACH APPLICATOR TOP ONE ×2 (11:24→12:14)
[2016-12-20] MEDS ORDERED: fentaNYL 100 MCG/2 ML VIAL ONE (11:27)
[2016-12-20] MEDS ORDERED: MIDAZOLAM 2 MG/2 ML VIAL ONE (11:27)
[2016-12-20] MEDS ORDERED: PHYTONADIONE 10 MG/1 ML AMP ONE ×2 (11:38→11:41)
[2016-12-20] MEDS ORDERED: ACETAMINOPHEN/CODEINE 300-30 MG TABLET PO PRN (12:42)
--- NOTE | 2016-12-20 12:45 | Cardiac Pacemaker ---
- Preoperative diagnosis Date of Procedure:: 12/20/16 Preoperative Diagnosis: Documented nonreversible symptomatic bradycardia due to , sinus node dysfunction Post-op diagnosis: same Anesthesia: moderate conscious sedation Surgeon / Physician: Keo Abebe Celebrity Manager: other (Tico Harrington) Estimated blood loss: minimal Specimens: none sent Condition: stable Disposition: floor - Medications / Follow-up
--- NOTE | 2016-12-20 12:57 | EKG Report ---
Stationary ECG Study [facility] Test Date: 12/20/2016 1:00:46 PM Pat Name: NATHANAEL CAMARA Department: Room: 110 Gender: M Naturopathic Physician: : 1945 Requested by: Keo Abebe Order Number: [id number] Reading MD: ZURDO PICKENS Intervals [place] Rate: 94 P: 93 [place]: 134 QRS: -74 QRSD: 114 T: 93 QT: 392 QTc: 444 Interpretive Statements SINUS RHYTHM INCOMPLETE RIGHT BUNDLE BRANCH BLOCK LEFT ANTERIOR FASCICULAR BLOCK Electronically Signed On 12-22-16 17:56:58 CDT by ZURDO PICKENS [id number]
--- NOTE | 2016-12-20 13:31 | XRay Report ---
Single view the chest. Indication: Lead placement. A pacemaker has been placed. Cardiac hardware appears to be in satisfactory position. There is a prosthetic valve is visible. The heart is enlarged. The pulmonary vasculature is mildly prominent. The left lung is clear. There is atelectasis and pleural effusion at the right lung base, stable to mildly improved. No pneumothorax. Impression: No evidence of immediate complication following lead placement. There is persistent atelectasis and pleural effusion at the right base. PROCEDURE INTERPRETED AT [facility] Final Report Signed by: Dr. Lesly Tovar
[2016-12-20] MEDS: DILTIAZEM CD 240 MG CAPSULE PO SCH ×2 (14:09→21:05)
[2016-12-20] MEDS: POTASSIUM CHLORIDE 20 MEQ TABLET PO SCH (21:04)
[2016-12-20] MEDS: FAMOTIDINE 20 MG TABLET PO SCH (21:05)
[2016-12-21 04:49] LABS: Basophils % 0.2 % (0.0-0.8); Eosinophils # 0.3 10*3/uL (0.0-0.87); Eosinophils % 4.5 % (0.00-10.9); Hematocrit 40.1 VOL% (42.0-52.0); Immature Granulocytes % 0.2 %; Immature Granulocytes Absolute 0.01 #; Lymphocytes # 1.2 10*3/uL (1.4-4.0); Lymphocytes % 20.1 % (21.2-54.2); Mean Corpuscular HGB Conc 32.4 GM/DL (32-36); Mean Corpuscular Hemoglobin 28 PG (27-34); Mean Corpuscular Volume 86.6 FL (87-102); Mean Platelet Volume 9.7 FL (9.6-12.0); Monocytes # 0.7 10*3/uL (0.11-0.8); Monocytes % 11.9 % (1.7-12.7); Neutrophils # 3.7 10*3/uL (1.4-7.4); Neutrophils % 63.1 % (38.7-73.9); Platelet Count 189 T/CUMM (130-400); Red Blood Count 4.63 MC/CUMM (3.8-5.5); White Blood Count 5.8 T/CUMM (4-12)
[2016-12-21 04:56] LABS: INR 1.6
[2016-12-21 05:22] LABS: Calcium 9.8 MG/DL (8.5-10.1); Osmolality,Calculated 285.4 MOS/KG (273-304); Potassium 3.9 MMOL/L (3.5-5.1)
--- NOTE | 2016-12-21 07:31 | XRay Report ---
XR chest 2V Indication: Lead placement Comparison: 20 December 2016 Findings: The heart and mediastinum are stable in size and configuration with cardiac surgery changes. Pacemaker device is unchanged in position. The pulmonary vascularity is increased similar to previous study. Lung volumes are increased with prominent bronchial markings. Small right pleural effusion is present, similar to previous exam when accounting for positional difference. No other lung infiltrates, effusions, pneumothorax or other abnormality is demonstrated. Impression: No significant change. PROCEDURE INTERPRETED AT [facility] Final Report Signed by: Dr. Kashif Abraham
--- NOTE | 2016-12-21 08:11 | EKG Report ---
Stationary ECG Study [facility] Test Date: 12/21/2016 8:10:49 AM Pat Name: NATHANAEL CAMARA Department: Room: 278 Gender: M Diabetes Education Coordinator: ARMANDO : 1945 Requested by: Lesly Borjas Order Number: [id number] Reading MD: ZURDO PICKENS Intervals [place] Rate: 68 P: 999 [place]: 0 QRS: -75 QRSD: 113 T: 78 QT: 445 QTc: 462 Interpretive Statements ATRIAL FIBRILLATION PATTERN CONSISTENT WITH PULMONARY DISEASE INCOMPLETE RIGHT BUNDLE BRANCH BLOCK LEFT ANTERIOR FASCICULAR BLOCK PROLONGED QT INTERVAL Electronically Signed On 12-22-16 18:22:03 CDT by ZURDO PICKENS [email or web address]
[2016-12-21] MEDS: DILTIAZEM CD 240 MG CAPSULE PO SCH (08:48)
[2016-12-21] MEDS: THYROID 60 MG TABLET PO SCH (08:51)
[2016-12-21] MEDS: FINASTERIDE 5 MG TABLET PO SCH (08:51)
[2016-12-21] MEDS: POTASSIUM CHLORIDE 20 MEQ TABLET PO SCH (08:51)
[2016-12-21] MEDS: MAGNESIUM CHLORIDE 64 MG TABLET PO SCH (08:52)
[2016-12-21] MEDS: METOPROLOL SUCCINATE XL 50 MG TABLET PO SCH (08:52)
[2016-12-21] MEDS: ASCORBIC ACID 500 MG TABLET PO SCH (08:53)
[2016-12-21] MEDS: ASPIRIN CHEW 81 MG TABLET PO SCH (08:53)
[2016-12-21] MEDS: FUROSEMIDE 40 MG TABLET PO SCH (08:54)
[2016-12-21] MEDS: SPIRONOLACTONE 25 MG TABLET PO SCH (08:54)
[2016-12-21] MEDS: LISINOPRIL 2.5 MG TABLET PO SCH (08:54)
[2016-12-21] MEDS ORDERED: METOPROLOL SUCCINATE XL 100 MG TABLET PO SCH (09:03)
[2016-12-21] MEDS: DILTIAZEM CD 120 MG CAPSULE PO SCH ×2 (09:07→09:48)
[2016-12-21] MEDS: METOPROLOL SUCCINATE XL 50 MG TABLET PO ONE ×2 (09:07→09:48)
--- NOTE | 2016-12-21 09:10 | Event Note ---
Patient medications were adjusted early this morning as patient continued to be slightly tachycardic. We will continue to monitor patient's blood pressure as well as heart rate. If this remains stable this afternoon with medication adjustments patient may be eligible for discharge home.
--- NOTE | 2016-12-21 11:59 | Discharge Summary ---
Hospital Course - Hospital Course Hospital Course: RETAIL ACCOUNT EXECUTIVE: Dr. Mcgraw SUMMARY Mr. Bedoya is a 71 year old male without known history of CAD, routinely followed by Dr. Mcgraw. Cardiac risk factors significant for: Hypertension, dyslipidemia, advanced age, family history of CAD (mother) and former smoker ( quit in 1992). Past medical history includes: Paroxysmal atrial flutter/ fibrillation (status post atrial ablation 1-1/2 months ago [facility]), chronic systolic congestive heart failure (EF 40%, without overt heart failure this hospitalization), hypothyroidism, chronic peripheral edema, chronic anticoagulation and nonrheumatic mitral valve regurgitation (status post MVR with bioprosthetic valve in [facility]). Unfortunately, patient did not remain in sinus rhythm post atrial ablation. He had recurrent A. fib RVR approximately 2 weeks ago. After seeing Dr. Mcgraw last week in the cardiology clinic they decided to increase his sotalol dose from 120 to 160 mg twice daily. He was directly admitted to the telemetry unit for close observation while his sotalol is increased. Initially, patient tolerated sotalol increase well. However, he remained in what we suspect is in atrial flutter with a controlled ventricular response. Patient was unsuccessful with chemical cardioversion use sotalol. For that reason, he was cardioverted 1 with 250 J, 12/19/[address] Ayala. After cardioversion, he had prolonged pauses of over 3 seconds. Heart rates ranging between 30s-50s. QTc 490s. Sotalol discontinued. His heart rate did pick out hand and did not require transcutaneous pacing. He then converted back to atrial flutter with rapid ventricular response. Diltiazem drip and Toprol initiated which helped with rate control. He was transferred to the ICU for close observation overnight. Patient developed sick sinus syndrome and Dr. Abebe was consulted to assist with device placement. He underwent dual-chamber pacemaker December 20, 2016. Patient tolerated this procedure well. Pacemaker device was interrogated and appears to be functioning appropriately. Chest x-ray reveals satisfactory lead placement without pneumothorax. Pacemaker pocket healing well without bleeding or signs of infection. Post pacemaker teaching completed. I have instructed him to keep left arm immobilizer intact without fail until he follows up with Dr. Abebe and receives further instruction. I have also instructed him to keep dressing over pacemaker insertion site until his follow-up appointment with Dr. Abebe. He and his family both verbalized understanding. Post pacemaker placement, rate controlling agents were increased to provide optimal rate control. Subsequently, DAVID inhibitor and Aldactone was discontinued as his blood pressure would not tolerate. Remains in atrial flutter, rate controlled. Asymptomatic. This morning, he feels remarkably better. He has ambulated around the telemetry unit without recurrent RVR. INR today is subtherapeutic at 1.6. He was given an extra dose of 2.5 mg of Coumadin today. He will have his INR rechecked in [address] Abebe in the cardiology clinic. He is anxious for discharge home. Having felt that he has not maximal medical therapy , he will be discharged home in stable condition. Patient has been given a follow-up appoint with Dr. Abebe in 1 week with pacemaker interrogation and INR check. He has also been given follow-up appointment with Dr. Mcgraw in 1 month with EKG and labs. Patient verbalizes understanding of discharge instructions and discharge medications. - Time spent with patient Time with patient DS: Greater than 30 minutes Diagnosis - Discharge Diagnosis (1) Paroxysmal atrial fibrillation Status: Chronic (2) CHF (congestive heart failure) Status: Chronic (3) Atrial flutter Status: Chronic (4) H/O mitral valve replacement Status: Chronic (5) High risk medication use Status: Chronic (6) Hypertension Status: Chronic (7) Chronic anticoagulation Status: Chronic (8) Hypothyroid Status: Chronic (9) Sick sinus syndrome Status: Resolved (10) Status post cardiac pacemaker procedure Status: Acute Specialty Discharge - Follow Up or Referrals Follow up with: Keo Abebe MD [Physician] - 1 Week (Pacemaker interrogation. INR.) Jose Mcgraw MD [Physician] - 1 Month (EKG, BMP WITH MAG) Discharge Plan - Discharge Data Disposition: Disch To Home/Self Care Condition at Discharge: Stable Activity: no lifting (Avoid lifting over 5 pounds.), other (Wear left arm sling indefinitely until follow-up with encoding machine operator.) Hygiene: may shower, other (Do not submerge pacemaker insertion site into water. ) Weight Bearing at Discharge: weight bear as tolerated Driving: not until seen by doctor Contact your physician if you experience:: fever over 101, Difficulty voiding, Redness or swelling, Nausea/Vomiting, Shortness of breath, Bleeding, pain uncontrolled by pain medications - Discharge Medications New Diltiazem Cd Cap [Cardizem CD] 120 mg PO DAILY #30 capsule Potassium Chloride Cap/Tab [K Dur] 20 meq PO BID #60 tablet Metoprolol Succinate Xl [Toprol Xl] 100 mg PO DAILY #30 tablet Continue Warfarin [Coumadin] 5 mg PO SUTUWEFRSA Temazepam [Restoril] 15 mg PO BEDTIME PRN PRN Reason: sleeplessness Furosemide Tab [Lasix Tab] 40 mg PO BID Finasteride 5 mg PO DAILY Ascorbic Acid [Vitamin C] 1,000 mg PO BID Magnesium Chloride [Mag Delay] 70 mg PO BID Aspirin 81 mg PO DAILY Thyroid,Pork [[place] Thyroid] 90 mg PO DAILY Warfarin Sodium 2.5 mg PO MOTH Discontinued Spironolactone [Aldactone] 25 mg PO BID Potassium Chloride 10 meq PO BID Sotalol [Betapace] 120 mg PO BID #60 tablet - Follow Up or Referral Follow Up: Keo Abebe MD [Physician] - 1 Week (Pacemaker interrogation. INR.) Jose Mcgraw MD [Physician] - 1 Month - Forms/Instructions Instructions: Pacemaker (DC) Exam - Constitutional Vitals: Period Temp Pulse Resp BP Sys/Pinto Pulse Ox Last 24 Hr 96.4 F-98.0 F 66-104 16-20 92-125/58-88 92-98 Exam: General: Appears well with no apparent distress. Pleasant and cooperative. Appears comfortable. HEENT: PERRL, normocephalic, atraumatic. Mucous membranes moist. No jaundice noted. Conjunctiva moist and clear, sclerae anicteric Neck: No JVD/HJR, no thyromegaly or lymphadenopathy noted. No carotid bruit appreciated Cardiac: Irregular rate and rhythm, rate controlled. Systolic murmur Chest wall: Pacemaker pocket healing well without bleeding or signs of infection. Lungs: Clear to auscultation without accessory muscle use to assist the respiratory pattern. Not requiring oxygen. Abdomen: Soft, bowel sounds normoactive. Nontender and nondistended. No abdominal bruit or thrill noted. No masses noted. Extremities: No clubbing, cyanosis noted. 1+ lower extremity edema. Upper extremity pulses 2+. Lower extremity pulses 2+. Capillary refill less than 3 seconds. Skin: No unusual lesions or rashes. No skin breakdown appreciated. Neuro: Awake, alert and oriented 3. Moves all extremities well without hemiparesis or paralysis. No essential tremor is appreciated. Discharge Results Procedures and tests throughout hospitalization: Pending Orders 12/19/16 06:00 CL heart Routine 12/20/16 10:05 CL pacemaker Routine 12/22/16 04:00 BMP w/ Mg [Basic Metabolic Panel w/Mg] IN AM CBC [Comp Blood Count Auto Diff] IN AM Prothrombin Time INR IN AM 12/23/16 04:00 BMP w/ Mg [Basic Metabolic Panel w/Mg] IN AM CBC [Comp Blood Count Auto Diff] IN AM Prothrombin Time INR IN AM 12/24/16 04:00 BMP w/ Mg [Basic Metabolic Panel w/Mg] IN AM CBC [Comp Blood Count Auto Diff] IN AM Prothrombin Time INR IN AM Labs on day of discharge: Labs from last 24 hours 12/21/16 12/21/16 12/21/16 04:14 04:14 04:14 WBC 5.8 RBC 4.63 Hgb 13.0 L Hct 40.1 L MCV 86.6 L MCH 28 MCHC 32.4 RDW 17.0 Plt Count 189 MPV 9.7 Neut % (Auto) 63.1 Lymph % (Auto) 20.1 L [place] % (Auto) 11.9 Eos % (Auto) 4.5 Baso % (Auto) 0.2 Neut # (Auto) 3.7 Lymph # (Auto) 1.2 L [place] # (Auto) 0.7 Eos # (Auto) 0.3 Baso # (Auto) 0.0 Immature Gran % 0.2 Nucleated RBC % 0.0 Immature Gran # 0.01 Nucleated RBCs # 0.00 Immature Plt Fraction 0.0 INR 1.6 PT Patient/Control Mix 17.0 D Sodium 140 Potassium 3.9 Chloride 103 Carbon Dioxide 30 Anion Gap 10.9 BUN 32 H Creatinine 1.00 GFR Calculation 89 BUN/Creatinine Ratio 32.00 H Glucose 101 Calculated Osmolality 285.4 Calcium 9.8 Magnesium 2.0 - Imaging and Cardiology Cardiology Procedure: report reviewed by me Procedure: Chest x-ray: report reviewed by me DS: Provider Date of admission: 12/17/16 10:15 Primary care physician: Nonstaff Physician Attending physician on admission: Jose Mcgraw MD Consults: Dr. Abebe Discharging clinician: Lesly Borjas NP Expected date of discharge: 12/21/16
[2016-12-21 12:06] VITALS: BP 95/65
[2016-12-21] MEDS ORDERED: WARFARIN 2.5 MG TABLET PO ONE (12:48)
--- NOTE | 2016-12-21 12:52 | Electrophysiology Progress Not ---
Jesse Glass Vanessa RN, am scribing for, and in the presence of, Keo Abebe MD 12 :51. Assessment and Plan - Time spent with patient Time spent with patient: Greater than 30 minutes (1) Tachy-sherif syndrome Status: Resolved Assessment and plan: 71-year-old WM, followed by Dr. Mcgraw. PMHx atrial fib ablation. Now admitted with symptomatic bradycardia recurrence of atypical atrial flutter and status post cardioversion again with pauses and long sinus arrest. Has been intolerant of amiodarone, and sotalol was ineffective. 12/21: dual chamber pacemaker implant EKG: ventricular pacing, atrial flutter A/P: 1. s/p pacemaker implant -pressure dressing removed, site looks good -chest x-ray confirms proper lead and device positioning -device interrogation per [employer] kiosk sales representative shows good function -wear immobilizer for 1 week -f/u with me in clinic in 1 week for interrogation and site check 2. PAF -chronically anticoagulated -subtherapeutic INR 1.6 today after total 2 mg Vitamin K -resume Coumadin from home medications if discharged home today, keep INR 2-3, recent CV, now back on atypical AFL -bridge with Lovenox 3. atrial flutter -better controlled ventricular response this morning -continue Cardizem CD 240 mg by mouth twice daily for pharmalogical rhythm control. Options are limited. -May need AVN ablation or redo AFL/AF ablation if rate/rhythm control remains difficult Current Visit: Yes (2) Chronic anticoagulation Status: Chronic Assessment and plan: SEE PLAN OF CARE LISTED ABOVE. Current Visit: Yes (3) Paroxysmal atrial fibrillation Status: Chronic Assessment and plan: SEE PLAN OF CARE LISTED ABOVE. Current Visit: Yes (4) Atrial flutter Status: Chronic Assessment and plan: SEE PLAN OF CARE LISTED ABOVE. Current Visit: No (5) Hypertension Status: Chronic Assessment and plan: SEE PLAN OF CARE LISTED ABOVE. Current Visit: No Electrophysiology Subjective Interval history: Mr. Bedoya feels much better today status post pacemaker implant. Not having any chest pain, dyspnea, palpitations, or other. Left chest pacemaker implant site stable, pressure dressing removed today. Borderline hypotension with SBP 90-105 mmHg. EKG and tele monitor ventricular pacing and atrial flutter, mildly tachycardic around 100 bpm. Subtherapeutic INR 1.6 today. Stable H/H. Exam - Constitutional Vitals: Period Temp Pulse Resp BP Sys/Pinto Pulse Ox Last 24 Hr 96.4 F-98.0 F 66-104 16-20 92-125/58-88 92-98 Exam: General appearance: normal weight, no acute distress - Head Head exam: Present: normal inspection. Absent: abrasion, hematoma - Eye Eye exam: Absent: conjunctival injection, periorbital swelling Pupils: Absent: dilated - ENT ENT exam: Present: normal external ear exam - Neck Neck exam: Present: normal inspection. Absent: thyromegaly - Respiratory Respiratory exam: Present: clear to auscultation bilaterally. Absent: chest wall tenderness, rhonchi, rales, wheeze - Cardiovascular Cardiovascular exam: Present: regular rate and rhythm, systolic murmur, mild tachycardia. Absent: JVD, bradycardia - GI/Abdominal GI/Abdominal exam: Present: normal bowel sounds, soft. Absent: distended, tender, firm - Extremities Exam Extremities exam: Present: normal inspection, normal capillary refill. Absent: edema - Back Exam Back exam: Present: normal inspection - Neurological Exam Neurological exam: Present: alert, oriented X3 - Psychiatric Psychiatric exam: Present: normal affect, normal mood. Not anxious or depressed - Skin Skin exam: Present: normal color, warm, dry. Absent: cyanosis, diaphoresis Results - Labs CBC & BMP: 12/21/16 04:14 12/21/16 04:14 Lab Results: I have reviewed the past 24 hour labs - Diagnostic Findings Procedure: Chest x-ray: image reviewed by me, report reviewed by me Specialty Discharge - Follow Up or Referrals Follow up with: Keo Abebe MD [Physician] - 1 Week (Pacemaker interrogation. INR.) Jose Mcgraw MD [Physician] - 1 Month I, Keo Abebe MD, personally performed the services described in this documentation, ascribed by Chantel Molina RN in my presence, and it is both accurate and complete .
[2016-12-21] MEDS ORDERED: WARFARIN 5 MG TABLET PO SCH ×2 (13:00→18:00)
== END 2016-12-21 15:01 | disposition home or self-care (01) | DRG 243 ==
LOC: N.TELES 09:51 → N.ICU 12-19 13:26 → N.TELES 12-20 13:02
PROVIDERS: ADMIT Internal Medicine Cardiovascular Disease; ATTEND Internal Medicine Cardiovascular Disease